=== PATIENT | male | born 1960 | race Caucasian/White ===

== ENCOUNTER 2017-01-24 15:45 | Inpatient (IN) ==
[2017-01-24] MEDS ORDERED: 0.9 % Sodium Chloride 500 ML IVC ONE (16:21)
--- NOTE | 2017-01-24 16:40 | Emergency Department Note ---
Disposition Clinical Impression: Weakness, Elevated troponin I level, EKG abnormalities, ESRD (end stage renal disease) on dialysis Closed right clavicular fracture Qualifiers: Encounter type: initial encounter Clavicle location: lateral end Fracture alignment: nondisplaced Qualified Code(s): S42.034A - Nondisplaced fracture of lateral end of right clavicle, initial encounter for closed fracture Disposition: Admitted As Inpatient Condition: Serious [facility]: [facility] Care Provider[facility] - Forms: ED Satisfaction Letter Time of Disposition: 18:13 Weakness HPI - General Chief complaint: ED Weakness Stated complaint: weakness Time Seen by Provider: 01/24/17 15:48 Source: patient, EMS Limitations: no limitations Nursing Notes Reviewed: Yes Vital Signs Reviewed: Yes - History of Present Illness HPI Narrative: 69-year-old male history of dialysis, dialyzes on Monday and Monday, typically at [facility], most of his care is received at the [facility], the patient presents today complaining of possibly 2 months of worsening and progressive weakness. His history of CVA and does take Coumadin at this time. He also has a history of AL status post stents, HTN, HLD, Vit D deficiency, Pt Subjective Complaint: generalized weakness/fatigue Onset (ago): month(s) Duration: intermittent Pain Severity: mild Pain Scale: 0 If pain, quality: tingling Improves with: none Worsens with: none Associated symptoms: Reports: confusion, easy bruising, other (frequent falls). Denies: chest pain, fever/chills, headaches, nausea/vomiting, myalgias - Related Data Allergies Allergy/AdvReac Type Severity Reaction Status Date / Time No Known Allergies Allergy Verified 01/24/17 15:51 All systems ED: reviewed and negative except as stated. Constitutional: Reports: as per HPI, weakness. Denies: fever Cardiovascular: Denies: chest pain, palpitations, dyspnea on exertion, edema, syncope Respiratory: Denies: cough, dyspnea Gastrointestinal: Denies: abdominal pain, nausea, vomiting Genitourinary: Denies: urgency, dysuria Musculoskeletal: Denies: back pain, neck pain Neurological: Reports: as per HPI, weakness, abnormal gait. Denies: numbness, paresthesias, confusion Past Medical History - Past Medical History Attestation: Yes The following information was validated with the patient. Source: old records reviewed, obtained from family Medical history: Reports: CVA, DVT, diabetes, dialysis, GERD, hyperlipidemia, hypertension, myocardial infarction, renal disease - Social History Smoking Status: Current every day smoker Alcohol use: Reports: none Drug use: Reports: none Physical Exam Constitutional: Cachectic male, mildly elevated blood pressure. HEENT: NCAT, sclera anicteric Neck: normal inspection, neck is supple, trachea midline Resp: normal chest inspection, CTA bilaterally, no resp distress CV: RRR, no m/g/r GI: normal inspection, Soft, NTND, BS present Back: normal inspection, no tenderness to palpation Neuro: A&O2 to self and place, right-sided 4-5 muscle strength upper extremity and lower extremity this is his baseline, unable to ambulate MSK: normal inspection, bilateral UE and LE with normal ROM Psych: normal mood, normal affect Skin: No rashes, skin warm, dry, intact - General Limitations: no limitations General appearance: alert Course Course Narrative: 56-year-old male with ESRD, kidney lab work CBC coagulation studies, CT scan chest x-ray in 500 mL of fluids the patient appears clinically dry, patient appears in poor condition, has multiple falls due to chronic debility, concern for probable admission for this patient. - Reevaluation(s) Reevaluation #1: The patient does have a right nondisplaced clavicle fracture, likely from fall, no associated pneumothorax, the patient to be admitted to medicine service given elevated troponin, some concerning anterior septal lead V2 V3 biphasic T waves that could represent a Wellens pattern in the right clinical context however the patient has no signs of ACS, said weakness he has no chest pain dyspnea diaphoresis, or anything concerning for acute AL, his troponin was mildly elevated in the setting of ESRD we do not have a baseline at his baseline EKG did demonstrate the same pattern over a week ago. Admitted to [facility] hospitalist service in stable condition Time: 18:12 Vital Signs Temperature 97.9 F 01/24/17 15:48 Pulse Rate 70 01/24/17 15:48 Respiratory Rate 18 01/24/17 15:48 Blood Pressure 185/85 01/24/17 15:48 O2 Sat by Pulse Oximetry 100 01/24/17 15:48 Temperature 97.9 F 01/24/17 15:48 Pulse Rate 73 01/24/17 17:54 Respiratory Rate 16 01/24/17 17:54 Blood Pressure 185/91 01/24/17 17:54 O2 Sat by Pulse Oximetry 96 01/24/17 17:54 Oxygen Delivery Oxygen Delivery Room Air Weakness - MDM Narrative Medical decision making narrative: 56-year-old male with ESRD, generalized weakness, right clavicle fracture, elevated troponin with EKG changes, patient is on Coumadin, plan to admit to medicine service for further evaluation, trending troponins, dialysis, CT was unremarkable for acute ICH, - Differential Diagnosis Differential Diagnosis: Likely: anemia, hypoglycemia - Medical Records Medical records reviewed: Yes I reviewed the patient's medical records. - Lab Data Lab results reviewed: Yes I reviewed the patient's lab results. Result diagrams: 01/24/17 17:15 01/24/17 17:15 Lab Results 01/24/17 01/24/17 01/24/17 Range/Units 16:58 17:15 17:15 WBC 8.7 (4.3-11.1) K/mcL RBC 3.67 L (4.19-5.50) M/mcL Hgb 11.5 L (12.9-16.9) g/dL Hct 34.0 L (37.5-50.1) % MCV 92.6 (83.0-100.0) fL MCH 31.3 (28.0-33.3) pg MCHC 33.8 (31.6-35.5) g/dL RDW 13.7 (11.5-14.5) % Plt Count 208 (140-400) K/mcL MPV 10.3 (9.4-12.4) fL Immature Gran % 0.5 (0-4) % Seg Neutrophils % 65.6 % Lymphocytes % 24.9 % Monocytes % 6.0 % Eosinophils % 2.2 % Basophils % 0.8 % Neutrophils # 5.7 (1.6-8.9) K/mcL Lymphocytes # 2.2 (0.6-4.6) K/mcL Monocytes # 0.5 (0.0-1.3) K/mcL Eosinophils # 0.2 (0.0-0.6) K/mcL Basophils # 0.1 (0.0-0.2) K/mcL Immature Plt Fraction 3.9 (1.1-6.1) % PT (9.4-12.1) Seconds INR Sodium 141 (136-145) mEq/L Potassium 3.4 L (3.5-4.5) mEq/L Chloride 99 (98-109) mEq/L Carbon Dioxide 33 H (19-29) mEq/L BUN 21 (8-26) mg/dL Creatinine 3.82 H (0.72-1.25) mg/dL Est GFR ( Amer) 20 L (> 60) Est GFR (Non-Af Amer) 16 L (> 60) BUN/Creatinine Ratio 5 L (6-26) Glucose 147 H (70-99) mg/dL Calculated Osmolality 298 (280-300) Lactic Acid (0.5-2.2) mmol/L Calcium 8.8 (8.6-10.8) mg/dL Phosphorus 2.3 (2.3-4.7) mg/dL Magnesium 1.8 (1.6-2.6) mg/dL Total Bilirubin 0.2 (0.2-1.2) mg/dL AST 17 (5-34) Units/L ALT 17 (0-55) Units/L Alkaline Phosphatase 182 H (38-126) Units/L Creatine Kinase 42 (30-200) Units/L Troponin I (0-0.03) ng/mL Serum Total Protein 7.5 (6.0-8.3) g/dL Albumin 3.8 (3.5-5.0) g/dL Globulin 3.7 H (2.4-3.5) g/dL Albumin/Globulin Ratio 1.0 L (1.1-2.2) Urine Color Yellow (Yellow) Urine Clarity Clear (Clear) Urine pH 8.0 (5.0-8.0) pH Units Ur Specific [place] 1.014 (1.010-1.025) Urine Protein >=300 H (Neg-Trace) mg/dL Urine Glucose (UA) 100 H (Normal) mg/dL Urine Ketones Negative (Negative) mg/dL Urine Blood Negative (Negative) Urine Nitrite Negative (Negative) Urine Bilirubin Negative (Negative) Urine Urobilinogen Normal (Normal) mg/dL Ur Leukocyte Esterase Negative (Negative) Urine Microscopic RBC 0-3 (0-3) per hpf Urine Microscopic WBC 0-3 (0-3) per hpf Ur Squamous Epith Cells Many H (None-Few) per lpf Urine Bacteria None Seen (None-Few) per hpf Hyaline Casts None Seen (None-Few) per lpf Ur Culture Indicated? NO (NO) 01/24/17 01/24/17 01/24/17 Range/Units 17:15 17:15 17:15 WBC (4.3-11.1) K/mcL RBC (4.19-5.50) M/mcL Hgb (12.9-16.9) g/dL Hct (37.5-50.1) % MCV (83.0-100.0) fL MCH (28.0-33.3) pg MCHC (31.6-35.5) g/dL RDW (11.5-14.5) % Plt Count (140-400) K/mcL MPV (9.4-12.4) fL Immature Gran % (0-4) % Seg Neutrophils % % Lymphocytes % % Monocytes % % Eosinophils % % Basophils % % Neutrophils # (1.6-8.9) K/mcL Lymphocytes # (0.6-4.6) K/mcL Monocytes # (0.0-1.3) K/mcL Eosinophils # (0.0-0.6) K/mcL Basophils # (0.0-0.2) K/mcL Immature Plt Fraction (1.1-6.1) % PT 20.5 H (9.4-12.1) Seconds INR 1.9 Sodium (136-145) mEq/L Potassium (3.5-4.5) mEq/L Chloride (98-109) mEq/L Carbon Dioxide (19-29) mEq/L BUN (8-26) mg/dL Creatinine (0.72-1.25) mg/dL Est GFR ( Amer) (> 60) Est GFR (Non-Af Amer) (> 60) BUN/Creatinine Ratio (6-26) Glucose (70-99) mg/dL Calculated Osmolality (280-300) Lactic Acid 1.3 (0.5-2.2) mmol/L Calcium (8.6-10.8) mg/dL Phosphorus (2.3-4.7) mg/dL Magnesium (1.6-2.6) mg/dL Total Bilirubin (0.2-1.2) mg/dL AST (5-34) Units/L ALT (0-55) Units/L Alkaline Phosphatase (38-126) Units/L Creatine Kinase (30-200) Units/L Troponin I 0.04 H* (0-0.03) ng/mL Serum Total Protein (6.0-8.3) g/dL Albumin (3.5-5.0) g/dL Globulin (2.4-3.5) g/dL Albumin/Globulin Ratio (1.1-2.2) Urine Color (Yellow) Urine Clarity (Clear) Urine pH (5.0-8.0) pH Units Ur Specific [place] (1.010-1.025) Urine Protein (Neg-Trace) mg/dL Urine Glucose (UA) (Normal) mg/dL Urine Ketones (Negative) mg/dL Urine Blood (Negative) Urine Nitrite (Negative) Urine Bilirubin (Negative) Urine Urobilinogen (Normal) mg/dL Ur Leukocyte Esterase (Negative) Urine Microscopic RBC (0-3) per hpf Urine Microscopic WBC (0-3) per hpf Ur Squamous Epith Cells (None-Few) per lpf Urine Bacteria (None-Few) per hpf Hyaline Casts (None-Few) per lpf Ur Culture Indicated? (NO) - Radiology Data Radiology results reviewed: Yes I reviewed the patient's radiology results. Chest X-Ray 01/24/17 16:08 IMPRESSION: No acute cardiopulmonary disease. Fracture of the distal right clavicle, possibly acute. Clinical correlation and follow-up right shoulder examination would be helpful. D/ / Nabor Mosher MD / Nabor Mosher MD Interpreting Provider: Nabor Mosher MD Head CT 01/24/17 16:13 IMPRESSION: No acute intracranial abnormality. D/ / Kristian Neves MD / Kristian Neves MD Interpreting Provider: Kristian Neves MD - EKG Data EKG attestation: Yes I reviewed and interpreted this EKG. EKG shows normal: sinus rhythm (69 bpm OK 167 curettes 97 QTc 428 biphasic T waves in leads V2 V3 seen on previous EKG in 01/12/2017, also has lateral T- wave inversions in V5 and V6.) Rate: normal Rhythm: NSR Interpretation: nonspecific ST-T wave changes - Core Measures AMI Core Measures Followed: No Measure Exclusions: not indicated (On Coumadin) Attestation Statement - Attestation Attestation: I examined this patient and my medical decision-making was reviewed with the Resident Physician. I agree with the documented findings, disposition and treatment plan as described except to the extent set forth below. Unknown baseline mental status, is answering questions appropriately but seems groggy and slow to answer. Appears clinically dry, oral mucosa and tongue are dry on my inspection. Mildly hypertensive with normal heart rate. Dr. Thompson workup and treatment seems appropriate. EKG shows anterior Q waves with lateral T-wave inversions and biphasic anterior T waves, unchanged from recent EKG from approximately 2 weeks ago. Patient will require admission for clinical observation and further testing.
[2017-01-24 17:07] LABS: Bilirubin,Urine Negative (Negative); Blood,Urine Negative (Negative); Clarity,Urine Clear (Clear); Color,Urine Yellow (Yellow); Glucose,Urine (UA) 100 mg/dL (Normal); Ketones,Urine Negative (Negative); Leukocyte Esterase,Urine Negative (Negative); Nitrite,Urine Negative (Negative); Protein,Urine >=300 mg/dL (Neg-Trace); Specific Gravity,Urine 1.014 (1.010-1.025); Urobilinogen,Urine Normal (Normal)
[2017-01-24 17:09] LABS: Bacteria,Urine None Seen per hpf (None-Few); Hyaline Casts,Urine None Seen per lpf (None-Few); RBC,Urine 0-3 per hpf (0-3); Squamous Epithelial Cell,Urine Many per lpf (None-Few); WBC,Urine 0-3 per hpf (0-3)
[2017-01-24 17:25] LABS: Basophils # 0.1 K/mcL (0.0-0.2); Basophils % 0.8 %; Eosinophils # 0.2 K/mcL (0.0-0.6); Eosinophils % 2.2 %; Hemoglobin 11.5 g/dL (12.9-16.9); Immature Granulocytes % 0.5 % (0-4); Immature Platelets 3.9 % (1.1-6.1); Lymphocytes # 2.2 K/mcL (0.6-4.6); Lymphocytes % 24.9 %; Mean Corpuscular HGB Conc 33.8 g/dL (31.6-35.5); Mean Corpuscular Hemoglobin 31.3 pg (28.0-33.3); Mean Corpuscular Volume 92.6 fL (83.0-100.0); Mean Platelet Volume 10.3 fL (9.4-12.4); Monocytes # 0.5 K/mcL (0.0-1.3); Neutrophils # 5.7 K/mcL (1.6-8.9); Platelet Count 208 K/mcL (140-400); Red Blood Count 3.67 M/mcL (4.19-5.50); Red Cell Distribution Width 13.7 % (11.5-14.5); Segmented Neutrophils % 65.6 %
[2017-01-24 17:29] LABS: INR 1.9; Prothrombin Time 20.5 Seconds (9.4-12.1)
[2017-01-24 17:40] LABS: Albumin 3.8 g/dL (3.5-5.0); Bilirubin,Total 0.2 mg/dL (0.2-1.2); Calcium 8.8 mg/dL (8.6-10.8); Globulin 3.7 g/dL (2.4-3.5); Magnesium 1.8 mg/dL (1.6-2.6); Phosphorous 2.3 mg/dL (2.3-4.7); Potassium 3.4 mEq/L (3.5-4.5); Total Protein 7.5 g/dL (6.0-8.3)
[2017-01-24] MEDS ORDERED: Acetaminophen 325 MG TABLET PO PRN (20:18)
[2017-01-24] MEDS ORDERED: Ondansetron ODT 4 MG TAB.RAPDIS SL PRN (20:18)
[2017-01-24] MEDS ORDERED: Naloxone 0.4 MG/ML INJ IVP PRN (20:18)
[2017-01-24] MEDS ORDERED: D5% in Water 1,000 ML IVC PRN (20:26)
[2017-01-24] MEDS ORDERED: Dextrose Gel 15 GM PO PRN ×2 (20:26)
[2017-01-24] MEDS ORDERED: *HR* Dextrose 50 % in Water (Syg) 50 ML SYRINGE IVP PRN (20:26)
[2017-01-24] MEDS ORDERED: Famotidine 20 MG TABLET PO SCH (21:00)
--- NOTE | 2017-01-24 21:34 | Internal Med History&Physical ---
<Lashon Gibbs M - Last Filed: 01/24/17 23:50> Date of Encounter: 01/24/17 Time of Encounter: 21:28 Assessment and Plan (1) Weakness Current visit: Yes Status: Acute Patient's brother brought patient to [place] urgent care for progressive weakness and falls since starting dialysis 5 weaks ago. Patient does have history of CVA with right sided residual. Head CT showed no acute intracranial abnormality. MR of head and brain ordered. Obtain old medical records of previous CVA to compare. SWK, PT, OT consulted. (2) Closed right clavicular fracture Current visit: Yes Status: Acute Patient reports a fall 1 week ago, does not complain of any pain. CXR incidentally found right non-displaced clavicle fracture. Sling ordered for right arm. Qualifiers: Encounter type: initial encounter Clavicle location: lateral end Fracture alignment: nondisplaced Qualified Code(s): S42.034A - Nondisplaced fracture of lateral end of right clavicle, initial encounter for closed fracture (3) Elevated troponin I level Current visit: Yes Status: Acute Troponin mildly elevated to 0.04 in the setting of ESRD. EKG without significant changes from previous. Continuous hospital monitor. Serial troponins. (4) ESRD (end stage renal disease) on dialysis Current visit: Yes Status: Acute Patient started HD 5 weeks ago and dialyzes MWF through a left sub-clavian HD catheter in [place]. BUN and creatinine consistent with ESRD at 21 and 3.82 respectively. Potassium acceptable at 3.4. Consult to Nephrology ordered, spoke with Dr. Guzman, who will see patient tomorrow. Check chemistry daily. (5) Anticoagulated on Coumadin Current visit: Yes Status: Acute Patient on coumadin for history of multiple DVTs. INR subtherapeutic at 1.9. Pharmacy to dose coumadin. Check PT/INR daily. (6) Type 2 diabetes mellitus Current visit: Yes Status: Acute diabetic diet check blood sugars ACHS continue 70/30 BID hypoglycemic protocol. Qualifiers: Diabetes mellitus complication status: with unspecified complications Diabetes mellitus alf insulin use: with alf use Qualified Code(s) : E11.8 - Type 2 diabetes mellitus with unspecified complications; Z79.4 - longterm (current) use of insulin (7) DVT prophylaxis Current visit: Yes Status: Acute Patient on coumadin for history of DVTs, additional pharmacologic prophylaxis not warranted. Internal Medicine - H&P: HPI Chief complaint: weakness Admitted From: Emergency Dept Plans for Post Hospital Care: Home History of present illness: Mr. Wilson is a 56 year old male with hypertension, hyperlipidemia, type 2 diabetes, history of multiple DVTs, seizure disorder, CVA with right-sided weakness, end-stage renal disease on hemodialysis for the last 5 weeks presents to the emergency department from the [place] urgent care for complaints of weakness and falls. Patient's brother reportedly brought him and has a she has been getting progressively weaker since initiating dialysis 5 weeks ago. Patient reporting historian, but does state that he feels weak and reports that he fell about a week ago. Patient complains of lightheadedness, poor appetite, denies any chest pain, palpitations, shortness of breath, nausea, vomiting, abdominal pain, diarrhea. Patient denies any fever, chills or sweats. Evaluation in the emergency department included a chest x-ray which showed a right nondisplaced clavicle fracture. Head CT showed no acute intracranial abnormality. Her blood cell count normal at 8.7. Troponin mildly elevated at 0.04, in the setting of end-stage renal disease. BUN and creatinine consistent with his diagnosis of end-stage renal disease at 21 and 3.82 respectively. Potassium at 3.4, acceptable. INR is subtherapeutic at 1.9 on exam, patient alert and oriented, in no acute distress. He does answer some questions inappropriately, and has difficulty with numbers and times, it is unclear if this is his baseline as patient's family not present. Patient's right arm is atrophied and he does not use it, consistent with his history of CVA. Right arm is significantly weaker than left. Cranial nerves intact. Heart has regular rate and rhythm, lungs are clear bilaterally to auscultation. He has bruising on his right posterior and lateral hip which patient reports is from his fall 1 week ago. Past Med Surg Social Fam HX - Past Medical History Medical history: CVA (with right sided residual. ), DVT, diabetes, dialysis, GERD, hyperlipidemia, hypertension, myocardial infarction, renal disease, seizures - Past Surgical History Surgical History: angioplasty/stent - Social History Smoking Status: Former smoker (42 pack year history) Smokeless Tobacco Status: No Alcohol use: none Drug use: none - Family History Mother Age: 87 Living Status: Still Living Hx Family Cardiac Disorders: Yes Hx Family Endocrine Disorder: Yes Father Living Status: Cause of : CVA Internal Medicine - H&P: Meds Ammonium Lactate 1 appl TP BID 01/24/17 [History] Atorvastatin [Lipitor] 40 mg PO HS 01/24/17 [History] Calcitriol [Rocaltrol] 0.25 mcg PO DAILY 01/24/17 [History] Carvedilol [Coreg] 25 mg PO BID 01/24/17 [History] Clopidogrel [Plavix] 75 mg PO DAILY 01/24/17 [History] Dextrose [Glucose] 16 gm PO AD PRN 01/24/17 [History] Docusate Sodium [Dok] 100 mg PO DAILY 01/24/17 [History] Ergocalciferol (VITAMIN D2) [Vitamin D2] 50,000 unit PO QWEEK 01/24/17 [History] Gabapentin [Neurontin] 400 mg PO DAILY 01/24/17 [History] Glucagon,Human Recombinant [Glucagon Emergency Kit] 1 mg IJ ONCE PRN 01/24/17 [ History] Insulin NPH Hum/Reg Insulin Hm [Novolin 70-30 100 Unit/ml Vial] 5 unit SQ QPM [History] Insulin NPH Hum/Reg Insulin Hm [Novolin 70-30 100 Unit/ml Vial] 15 unit SQ QAM 01/24/17 [History] LevETIRAcetam [Keppra] 500 mg PO BID 01/24/17 [History] Lisinopril [Zestril] 20 mg PO DAILY 01/24/17 [History] Nut.tx.impaired Renal Fxn,Soy [Nepro Carb Steady] 237 ml PO DAILY 01/24/17 [ History] Omeprazole [PriLOSEC] 20 mg PO DAILY 01/24/17 [History] Phenytoin ER [Dilantin ER] 200 mg PO BID 01/24/17 [History] Triamcinolone Acet 0.1% CRM [Kenalog] 1 appl TP BID 01/24/17 [History] Warfarin [Coumadin] 5 mg PO SUTUTHSA 01/24/17 [History] Warfarin [Coumadin] 7.5 mg PO MOWEFR 01/24/17 [History] cloNIDine HCl [Clonidine HCl] 0.3 mg PO TID 01/24/17 [History] Allergies No Known Allergies Allergy (Verified 01/24/17 15:51) All Systems PM: A 10-system review of systems was performed and is negative for pertinent findings except as documented above in the HPI. - Constitutional Constitutional: anorexia, weakness, no chills, no fever(s), no night sweats - EENT Eyes: no change in vision, no discharge, no pain, no photophobia Ears: no ear discharge, no ear pain, no tinnitus Nose, mouth and throat: no dysphagia, no nasal discharge, no neck pain, no sore throat - Cardiovascular Cardiovascular ROS IM: no chest pain, no diaphoresis, no dyspnea, no lightheadedness, no palpitations, no syncope - Respiratory Respiratory: no cough, no dyspnea, no wheezing, no excessive phlegm production - Gastrointestinal Gastrointestinal: no abdominal pain, no diarrhea, no hematemesis, no hematochezia, no melena, no nausea, no vomiting - Musculoskeletal Musculoskeletal ROS IM: no numbness, no tingling - Integumentary Integumentary IM: no rash, no unusual bruising - Neurological Neurological ROS: no confusion, no convulsions, no focal weakness, no numbness, no tingling, no tremor(s) - Hematologic/Lymphatic Hematologic/Lymphatic: no easy bruising - Constitutional Vitals: Temp Pulse Resp BP Pulse Ox 97.7 F 78 17 188/85 99 01/24/17 20:28 01/24/17 20:28 01/24/17 20:28 01/24/17 20:28 01/24/17 20:28 General appearance: Present: A&O X 3, pleasant, no acute distress - Head Head exam: Present: atraumatic, normocephalic - Eye Eye exam: Present: PERRL, conjuntiva pink, sclera anicteric Pupils: Present: PERRL - Neck Neck exam general surgery: Present: supple, trachea midline. Absent: lymphadenopathy - Respiratory Respiratory exam: Present: CTAB. Absent: accessory muscle use, rales, rhonchi, wheezes - Cardiovascular Cardiovascular exam: Present: RRR, +S1, +S2. Absent: diastolic murmur, gallop, rubs, systolic murmur - GI/Abdominal GI/Abdominal exam: Present: normal bowel sounds, soft, no peritoneal signs. Absent: distended, tenderness - Extremities Exam Extremities exam: Present: warm, radial pulses palpable and symetrical. Absent : calf tenderness, cyanotic, pedal edema - Neurological Exam Neurological exam: Present: CN II-XII intact, oriented X3. Absent: strengths equal and symetr throughout, facial droop, speech deficit - Expanded Neurological Exam Neuro motor strength exam: LUE: 5, RUE: 3, LLE: 5, RLE: 5 - Skin Skin exam: Present: dry, intact Internal Med - H&P Results - Labs CBC & Chem 7: 01/24/17 17:15 01/24/17 17:15 Labs: All Lab Results (24 Hours) 01/24/17 01/24/17 01/24/17 Range/Units 16:58 17:15 17:15 WBC 8.7 (4.3-11.1) K/mcL RBC 3.67 L (4.19-5.50) M/mcL Hgb 11.5 L (12.9-16.9) g/dL Hct 34.0 L (37.5-50.1) % MCV 92.6 (83.0-100.0) fL MCH 31.3 (28.0-33.3) pg MCHC 33.8 (31.6-35.5) g/dL RDW 13.7 (11.5-14.5) % Plt Count 208 (140-400) K/mcL MPV 10.3 (9.4-12.4) fL Immature Gran % 0.5 (0-4) % Seg Neutrophils % 65.6 % Lymphocytes % 24.9 % Monocytes % 6.0 % Eosinophils % 2.2 % Basophils % 0.8 % Neutrophils # 5.7 (1.6-8.9) K/mcL Lymphocytes # 2.2 (0.6-4.6) K/mcL Monocytes # 0.5 (0.0-1.3) K/mcL Eosinophils # 0.2 (0.0-0.6) K/mcL Basophils # 0.1 (0.0-0.2) K/mcL Immature Plt Fraction 3.9 (1.1-6.1) % PT (9.4-12.1) Seconds INR Sodium 141 (136-145) mEq/L Potassium 3.4 L (3.5-4.5) mEq/L Chloride 99 (98-109) mEq/L Carbon Dioxide 33 H (19-29) mEq/L BUN 21 (8-26) mg/dL Creatinine 3.82 H (0.72-1.25) mg/dL Est GFR ( Amer) 20 L (> 60) Est GFR (Non-Af Amer) 16 L (> 60) BUN/Creatinine Ratio 5 L (6-26) Glucose 147 H (70-99) mg/dL Calculated Osmolality 298 (280-300) Lactic Acid (0.5-2.2) mmol/L Calcium 8.8 (8.6-10.8) mg/dL Phosphorus 2.3 (2.3-4.7) mg/dL Magnesium 1.8 (1.6-2.6) mg/dL Total Bilirubin 0.2 (0.2-1.2) mg/dL AST 17 (5-34) Units/L ALT 17 (0-55) Units/L Alkaline Phosphatase 182 H (38-126) Units/L Creatine Kinase 42 (30-200) Units/L Troponin I (0-0.03) ng/mL Serum Total Protein 7.5 (6.0-8.3) g/dL Albumin 3.8 (3.5-5.0) g/dL Globulin 3.7 H (2.4-3.5) g/dL Albumin/Globulin Ratio 1.0 L (1.1-2.2) Urine Color Yellow (Yellow) Urine Clarity Clear (Clear) Urine pH 8.0 (5.0-8.0) pH Units Ur Specific [place] 1.014 (1.010-1.025) Urine Protein >=300 H (Neg-Trace) mg/dL Urine Glucose (UA) 100 H (Normal) mg/dL Urine Ketones Negative (Negative) mg/dL Urine Blood Negative (Negative) Urine Nitrite Negative (Negative) Urine Bilirubin Negative (Negative) Urine Urobilinogen Normal (Normal) mg/dL Ur Leukocyte Esterase Negative (Negative) Urine Microscopic RBC 0-3 (0-3) per hpf Urine Microscopic WBC 0-3 (0-3) per hpf Ur Squamous Epith Cells Many H (None-Few) per lpf Urine Bacteria None Seen (None-Few) per hpf Hyaline Casts None Seen (None-Few) per lpf Ur Culture Indicated? NO (NO) 01/24/17 01/24/17 01/24/17 Range/Units 17:15 17:15 17:15 WBC (4.3-11.1) K/mcL RBC (4.19-5.50) M/mcL Hgb (12.9-16.9) g/dL Hct (37.5-50.1) % MCV (83.0-100.0) fL MCH (28.0-33.3) pg MCHC (31.6-35.5) g/dL RDW (11.5-14.5) % Plt Count (140-400) K/mcL MPV (9.4-12.4) fL Immature Gran % (0-4) % Seg Neutrophils % % Lymphocytes % % Monocytes % % Eosinophils % % Basophils % % Neutrophils # (1.6-8.9) K/mcL Lymphocytes # (0.6-4.6) K/mcL Monocytes # (0.0-1.3) K/mcL Eosinophils # (0.0-0.6) K/mcL Basophils # (0.0-0.2) K/mcL Immature Plt Fraction (1.1-6.1) % PT 20.5 H (9.4-12.1) Seconds INR 1.9 Sodium (136-145) mEq/L Potassium (3.5-4.5) mEq/L Chloride (98-109) mEq/L Carbon Dioxide (19-29) mEq/L BUN (8-26) mg/dL Creatinine (0.72-1.25) mg/dL Est GFR ( Amer) (> 60) Est GFR (Non-Af Amer) (> 60) BUN/Creatinine Ratio (6-26) Glucose (70-99) mg/dL Calculated Osmolality (280-300) Lactic Acid 1.3 (0.5-2.2) mmol/L Calcium (8.6-10.8) mg/dL Phosphorus (2.3-4.7) mg/dL Magnesium (1.6-2.6) mg/dL Total Bilirubin (0.2-1.2) mg/dL AST (5-34) Units/L ALT (0-55) Units/L Alkaline Phosphatase (38-126) Units/L Creatine Kinase (30-200) Units/L Troponin I 0.04 H* (0-0.03) ng/mL Serum Total Protein (6.0-8.3) g/dL Albumin (3.5-5.0) g/dL Globulin (2.4-3.5) g/dL Albumin/Globulin Ratio (1.1-2.2) Urine Color (Yellow) Urine Clarity (Clear) Urine pH (5.0-8.0) pH Units Ur Specific [place] (1.010-1.025) Urine Protein (Neg-Trace) mg/dL Urine Glucose (UA) (Normal) mg/dL Urine Ketones (Negative) mg/dL Urine Blood (Negative) Urine Nitrite (Negative) Urine Bilirubin (Negative) Urine Urobilinogen (Normal) mg/dL Ur Leukocyte Esterase (Negative) Urine Microscopic RBC (0-3) per hpf Urine Microscopic WBC (0-3) per hpf Ur Squamous Epith Cells (None-Few) per lpf Urine Bacteria (None-Few) per hpf Hyaline Casts (None-Few) per lpf Ur Culture Indicated? (NO) - Diagnostic Studies Chest x-ray Additional comments: Chest X-Ray 01/24/17 16:08 IMPRESSION: No acute cardiopulmonary disease. Fracture of the distal right clavicle, possibly acute. Clinical correlation and follow-up right shoulder examination would be helpful. D/ / Nabor Mosher MD / Nabor Mosher MD Interpreting Provider: Nabor Mosher MD CT scan - head Additional comments: Head CT 01/24/17 16:13 IMPRESSION: No acute intracranial abnormality. D/ / Kristian Neves MD / Kristian Neves MD Interpreting Provider: Kristian Neves MD <Ghulam Cardenas - Last Filed: 01/25/17 00:08> Date of Encounter: 01/24/17 - Constitutional Constitutional: anorexia, weakness - Cardiovascular Cardiovascular ROS IM: no chest pain, no dyspnea - Respiratory Respiratory: no dyspnea, no hemoptysis, no chest congestion - Gastrointestinal Gastrointestinal: no abdominal pain, no dyspepsia, no nausea - Genitourinary Genitourinary ROS male: no flank pain - Musculoskeletal Musculoskeletal ROS IM: no arthralgias, no back pain - Integumentary Integumentary IM: no jaundice - Psychiatric Psychiatric: no anxiety, no depression - Endocrine Endocrine IM: no cold intolerance, no heat intolerance - Allergic/Immunologic Allergic/Immunologic: no wheezing, no GI upset with certain foods - Constitutional Vitals: Temp Pulse Resp BP Pulse Ox 97.7 F 78 17 188/85 99 01/24/17 20:28 01/24/17 20:28 01/24/17 20:28 01/24/17 20:28 01/24/17 20:28 General appearance: Present: cachectic, cooperative, A&O X 3, pleasant, no acute distress - Head Head exam: Present: atraumatic - Eye Eye exam: Absent: scleral icterus - Neck Neck exam general surgery: Present: full ROM, supple - Respiratory Respiratory exam: Present: CTAB. Absent: rales, wheezes - Cardiovascular Cardiovascular exam: Present: RRR, +S1, +S2 - GI/Abdominal GI/Abdominal exam: Present: soft. Absent: tenderness - Extremities Exam Extremities exam: Present: warm Additional comments: + muscle atrophy - Back Exam Back exam: Absent: CVA tenderness (L), CVA tenderness (R) - Psychiatric Psychiatric exam: Present: normal affect, normal mood. Absent: anxious, depressed - Skin Skin exam: Present: dry, warm Internal Med - H&P Results - Labs CBC & Chem 7: 01/24/17 17:15 01/24/17 17:15 - EKG Data -: EKG Interpreted by Myself - EKG Data Prior EKG available for review: yes When compared to previous EKG: there is no significant change - Diagnostic Studies Chest x-ray Status: image reviewed by me (clavicle fracture noted) - Attending Attestation I discussed the patient [place], PMH, ROS, lab data, and exam findings with Lashon Gibbs CNP. I then saw and examined patient independently as well. Patient reports feeling weak, falling, and losing appetite since he started hemodialysis. 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 He has history of old stroke, but he denies any new focal neurologic complaints. I agree with proceeding with MRI of brain nonetheless. Other than my comments and noted exam findings, I agree with Lashon's assessment and plan.
[2017-01-24] MEDS: levETIRAcetam 250 MG TABLET PO SCH (21:43)
[2017-01-24] MEDS: cloNIDine HCl 0.1 MG TABLET PO SCH (21:43)
[2017-01-24] MEDS: Ammonium Lactate 30 APPL/225 GM BOTTLE TP SCH (21:46)
[2017-01-25 04:36] LABS: INR 1.9; Prothrombin Time 21.4 Seconds (9.4-12.1)
[2017-01-25 04:46] LABS: Basophils # 0.1 K/mcL (0.0-0.2); Calcium 8.3 mg/dL (8.6-10.8); Eosinophils # 0.2 K/mcL (0.0-0.6); Eosinophils % 3.7 %; Hematocrit 29.7 % (37.5-50.1); Immature Granulocytes % 0.3 % (0-4); Lymphocytes # 1.9 K/mcL (0.6-4.6); Mean Corpuscular HGB Conc 33.7 g/dL (31.6-35.5); Mean Platelet Volume 10.4 fL (9.4-12.4); Monocytes # 0.5 K/mcL (0.0-1.3); Neutrophils # 3.2 K/mcL (1.6-8.9); Platelet Count 153 K/mcL (140-400); Potassium 3.1 mEq/L (3.5-4.5); Red Blood Count 3.23 M/mcL (4.19-5.50); Red Cell Distribution Width 13.6 % (11.5-14.5)
[2017-01-25] MEDS: levETIRAcetam 250 MG TABLET PO SCH ×2 (08:22→22:18)
--- NOTE | 2017-01-25 08:35 | Nephrology Consult Note ---
Date of Encounter: 01/25/17 Time of Encounter: 08:33 Assessment and Plan (1) ESRD (end stage renal disease) on dialysis Current Visit: Yes Status: Acute The patient will undergo dialysis today. Potassium is 3.17 on a 4K bath. I do not believe he needs to dialyze for 4 hours given his body size. We will check a phosphorus and PTH as well as iron studies. (2) Type 2 diabetes mellitus with diabetic chronic kidney disease Current Visit: Yes Status: Acute Qualifiers: Diabetes mellitus shelter insulin use: unspecified shelter insulin use status Chronic kidney disease stage: on chronic dialysis Qualified Code(s): E11.22 - Type 2 diabetes mellitus with diabetic chronic kidney disease; N18.6 - End stage renal disease; Z99.2 - Dependence on renal dialysis (3) Weakness Current Visit: Yes Status: Acute History of Present Illness - History of Present Illness This is a 56-year-old male that was admitted for progressive weakness and falling. Apparently fell about a week ago and sustained a right clavicular fracture. Patient reports a history of end-stage renal disease. He has been on dialysis for 2 months. He receives dialysis with [facility] in [facility]. He says he dialyzes every Monday for 4 hours. He reports sometimes after dialysis he feels weak. He continues to have a decent urine output reportedly. He says his renal failure was caused by a heart attack but I suspect that he has diabetic nephropathy. His hemoglobin is relatively good at 10.0. Vital signs are stable. He denies any chest pain shortness of breath peripheral edema nausea vomiting or anorexia. Past Med Surg Social Fam HX - Past Medical History Medical history: CVA (with right sided residual. ), DVT, diabetes, dialysis, GERD, hyperlipidemia, hypertension, myocardial infarction, renal disease, seizures - Past Surgical History Surgical History: angioplasty/stent - Social History Smoking Status: Former smoker (42 pack year history) Smokeless Tobacco Status: No Alcohol use: none Drug use: none - Family History Mother Age: 87 Living Status: Still Living Hx Family Cardiac Disorders: Yes Hx Family Endocrine Disorder: Yes Father Living Status: Cause of : CVA Medications and Allergies Ammonium Lactate 1 appl TP BID 01/24/17 [History] Atorvastatin [Lipitor] 40 mg PO HS 01/24/17 [History] Calcitriol [Rocaltrol] 0.25 mcg PO DAILY 01/24/17 [History] Carvedilol [Coreg] 25 mg PO BID 01/24/17 [History] Clopidogrel [Plavix] 75 mg PO DAILY 01/24/17 [History] Dextrose [Glucose] 16 gm PO AD PRN 01/24/17 [History] Docusate Sodium [Dok] 100 mg PO DAILY 01/24/17 [History] Ergocalciferol (VITAMIN D2) [Vitamin D2] 50,000 unit PO QWEEK 01/24/17 [History] Gabapentin [Neurontin] 400 mg PO DAILY 01/24/17 [History] Glucagon,Human Recombinant [Glucagon Emergency Kit] 1 mg IJ ONCE PRN 01/24/17 [ History] Insulin NPH Hum/Reg Insulin Hm [Novolin 70-30 100 Unit/ml Vial] 5 unit SQ QPM [History] Insulin NPH Hum/Reg Insulin Hm [Novolin 70-30 100 Unit/ml Vial] 15 unit SQ QAM 01/24/17 [History] LevETIRAcetam [Keppra] 500 mg PO BID 01/24/17 [History] Lisinopril [Zestril] 20 mg PO DAILY 01/24/17 [History] Nut.tx.impaired Renal Fxn,Soy [Nepro Carb Steady] 237 ml PO DAILY 01/24/17 [ History] Omeprazole [PriLOSEC] 20 mg PO DAILY 01/24/17 [History] Phenytoin ER [Dilantin ER] 200 mg PO BID 01/24/17 [History] Triamcinolone Acet 0.1% CRM [Kenalog] 1 appl TP BID 01/24/17 [History] Warfarin [Coumadin] 5 mg PO SUTUTHSA 01/24/17 [History] Warfarin [Coumadin] 7.5 mg PO MOWEFR 01/24/17 [History] cloNIDine HCl [Clonidine HCl] 0.3 mg PO TID 01/24/17 [History] Allergies No Known Allergies Allergy (Verified 01/24/17 15:51) Review of Systems Constitutional: as per HPI, weakness Eyes: bilateral: blurred vision (patient denies), diplopia (patient denies) Nose, mouth and throat: no dizziness, no headache(s) Cardiovascular: no chest pain, no palpitations Respiratory: no cough, no dyspnea Gastrointestinal: no abdominal pain, no change in bowel habits Musculoskeletal: no muscle weakness, no numbness Integumentary: no hirsutism, no striae Neurological: frequent falls, weakness Psychiatric: no depression, no difficulty concentrating Endocrine: as per HPI Hematologic/Lymphatic: no easy bruising, no lymphadenopathy Exam - Vital Signs Vital signs: Initial Vital Signs Temp Pulse Resp BP Pulse Ox 97.9 F 70 18 185/85 100 01/24/17 15:48 01/24/17 15:48 01/24/17 15:48 01/24/17 15:48 01/24/17 15:48 Vital Signs - Last 8 Hours Temp Pulse Resp BP Pulse Ox 01/25/17 07:19 98.3 F 79 16 143/75 100 01/25/17 04:35 97.9 F 68 16 170/89 94 Intake and Output 01/24/17 01/25/17 01/25/17 23:59 07:59 15:59 Other: Weight 70.307 kg - General Appearance Exam: The patient is alert and oriented. He is in no acute distress. Neck is supple. Lungs diminished breath sounds otherwise clear. Heart regular rate and rhythm with a 2/6 ejection murmur. Abdomen shows normal bowel sounds of breast masses, megaly or tenderness. Extremities show no peripheral edema. Assessment evidence of previous venous stasis changes. There is a tunnel dialysis catheter in the left chest. Results - Lab Results 01/25/17 04:12 01/25/17 04:12 Most recent lab results Calcium 8.3 mg/dL (8.6-10.8) L 01/25/17 04:12 Phosphorus 2.3 mg/dL (2.3-4.7) 01/24/17 17:15 Magnesium 1.8 mg/dL (1.6-2.6) 01/24/17 17:15 Consult Discharge Plan - Plan [facility] Care Provider[facility] -
[2017-01-25] MEDS ORDERED: 0.9 % Sodium Chloride 250 ML IVC PRN (08:38)
[2017-01-25] MEDS ORDERED: Gabapentin 400 MG CAPSULE PO SCH (09:00)
[2017-01-25] MEDS ORDERED: 0.9 % Sodium Chloride 2,000 ML ONE (10:48)
[2017-01-25 11:22] LABS: Phosphorous 2.4 mg/dL (2.3-4.7)
[2017-01-25] MEDS: Insulin NPH/REG 70/30 100 UNIT/ML (x5UNIT) SQ SCH ×2 (11:28→18:12)
--- NOTE | 2017-01-25 11:34 | Electrocardiograph Report ---
[place] [id number] Test Date: 2017-01-24 Pat Name: Marcos Wilson Department: 104 Room: 2A25 Gender: M [employer] Black [employer]: MSC : 1960 Requested By: Howard Thompson Order Number: [id number] Reading MD: Mandy Santamaria Measurements Intervals [place] Rate: 69 P: 52 [place]: 167 QRS: 5 QRSD: 97 T: 133 QT: 410 QTc: 428 Interpretive Statements SINUS RHYTHM PROBABLE INFERIOR MYOCARDIAL INFARCTION, PROBABLY OLD ANTEROLATERAL MYOCARDIAL INFARCTION, AGE INDETERMINATE Electronically Signed On 01-25-2017 11:33:00 EDT by Mandy Santamaria
[2017-01-25] MEDS: cloNIDine HCl 0.1 MG TABLET PO SCH ×3 (13:26→22:19)
[2017-01-25] MEDS: Lisinopril 20 MG TABLET PO SCH (13:27)
[2017-01-25] MEDS: Gabapentin 300 MG CAPSULE PO SCH (13:28)
[2017-01-25] MEDS: Ammonium Lactate 30 APPL/225 GM BOTTLE TP SCH ×3 (13:31→22:22)
[2017-01-25] MEDS: Insulin LISPRO 300 UNITS/3 ML VIAL SQ SCH ×3 (13:35→22:19)
--- NOTE | 2017-01-25 15:27 | Internal Med Progress Note ---
<Howard Schneider - Last Filed: 01/25/17 15:23> Date of Encounter: 01/25/17 Time of Encounter: 11:00 - Assessment and plan (1) Weakness Current Visit: Yes Status: Acute Assessment and plan: CT head in ED revealed no actue pathology. MRI ordered for today, results pending - PT/OT consulted. PT recommended home self care upon discharge. - Orthostatics positive, will insure adequate hydration, fluid balance with dialysis. - Will check TSH, phenytoin level. (2) Elevated troponin I level Current Visit: Yes Status: Acute Assessment and plan: In ED, Troponin 0.04. Has been adynamic, most recently 0.03 - Likely a result of decreased renal function vs demand ischemia - EKG revealed no ST changes. (3) ESRD (end stage renal disease) on dialysis Current Visit: Yes Status: Acute Assessment and plan: - BUN/ Cr on admission was 21/3.82. Known CKD stage 4 on HD -This AM was 23/3.90 - HD catheter oin L subclavian. Dialysis is MWF - Nephrology following. HD performed this Afternoon. - K this AM was 3.1. Nephrology ordered replacement during HD (4) Closed right clavicular fracture Current Visit: Yes Status: Acute Assessment and plan: - Incidental finding on CXR in ED - Likely occurred 1 week ago after reported fall - Patient in right arm sling, reporting no pain. Qualifiers: Encounter type: initial encounter Clavicle location: lateral end Fracture alignment: nondisplaced Qualified Code(s): S42.034A - Nondisplaced fracture of lateral end of right clavicle, initial encounter for closed fracture (5) DVT prophylaxis Current Visit: Yes Status: Acute Assessment and plan: - Patient on Coumadin for CVA. Continue home dose - INR in ED was 1.9, will adjust dose accordingly. (6) Type 2 diabetes mellitus Current Visit: Yes Status: Acute Assessment and plan: - Sliding insulin scale in place. - Continue checks. 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 His only complaint at this time was "dizzy". he has been experiencing these symptoms for multiple weeks. He states they are worse when he rises from a chair or bed. They are constant. He states that he is here for dialysis. He denies any symptoms of CP, SOB, n/v, diarrhea, fevers, chills. He states he has not had any cardiac workup in the past. He is not complaining of weakness this morning. - Constitutional Vitals: Temp Pulse Resp BP Pulse Ox 98.3 F 79 20 163/86 100 01/25/17 14:00 01/25/17 07:19 01/25/17 14:00 01/25/17 14:00 01/25/17 07:19 General appearance: Present: cachectic, cooperative, A&O X 3, pleasant, no acute distress Exam: Gen.: Vitals noted. No acute distress. AAOx3 HEENT: PERRL/EOMI, oropharynx clear, Normocephalic, atraumatic Neck: Supple. No adenopathy. Cardiac: RRR, no murmur, +S1/S2 Pulmonary: CTA bilaterally, no wheezes, rales or rhonchi, equal chest expansion Abdomen: soft, nontender, BS noted, no guarding Back: Nontender throughout. MSK: Unwilling to move right arm, currenltly in sling 2/2 clavicular fx, ROM intact, no joint swelling noted Extremities: no BLE edema, nontender calf, no cyanosis or clubbing Neuro: A&Ox3, moves all extremities, no focal deficits. Negative head tilt test. Psych: Appropriate mood and behavior Internal Medicine: Result - Labs CBC & Chem 7: 01/25/17 04:12 01/25/17 04:12 Labs: Short CBC 01/25/17 Range/Units 04:12 WBC 5.9 (4.3-11.1) K/mcL Hgb 10.0 L D (12.9-16.9) g/dL Hct 29.7 L (37.5-50.1) % Plt Count 153 (140-400) K/mcL Neutrophils # 3.2 (1.6-8.9) K/mcL BMP 01/25/17 04:12 Sodium 141 Potassium 3.1 L Chloride 102 Carbon Dioxide 30 H BUN 23 Creatinine 3.90 H Glucose 139 H Calcium 8.3 L Cardiac Enzymes 01/25/17 01/25/17 Range/Units 00:40 04:12 Troponin I 0.04 H* 0.03 (0-0.03) ng/mL - ABG Interpretation ABG results: PT/INR, D-dimer PT 21.4 Seconds (9.4-12.1) H 01/25/17 04:12 Consult Discharge Plan - Plan [facility]errals: [facility] [Primary Care Provider[facility] - <Reji De Souza - Last Filed: 01/25/17 17:36> Date of Encounter: 01/25/17 - Constitutional Vitals: Temp Pulse Resp BP Pulse Ox 98.0 F 79 18 102/65 98 01/25/17 15:58 01/25/17 15:58 01/25/17 15:58 01/25/17 15:58 01/25/17 15:58 Internal Medicine: Result - Labs CBC & Chem 7: 01/25/17 04:12 01/25/17 04:12 Labs: Short CBC 01/25/17 Range/Units 04:12 WBC 5.9 (4.3-11.1) K/mcL Hgb 10.0 L D (12.9-16.9) g/dL Hct 29.7 L (37.5-50.1) % Plt Count 153 (140-400) K/mcL Neutrophils # 3.2 (1.6-8.9) K/mcL [facility] 01/25/17 04:12 Sodium 141 Potassium 3.1 L Chloride 102 Carbon Dioxide 30 H BUN 23 Creatinine 3.90 H Glucose 139 H Calcium 8.3 L Cardiac Enzymes 01/25/17 01/25/17 Range/Units 00:40 04:12 Troponin I 0.04 H* 0.03 (0-0.03) ng/mL - ABG Interpretation ABG results: PT/INR, D-dimer PT 21.4 Seconds (9.4-12.1) H 01/25/17 04:12 - Attending Attestation I examined this patient and my medical decision-making was reviewed with the Resident Physician on 01/25/17. I agree with the documented findings, disposition and treatment plan as described except to the extent set forth below. Mr. Wilson was seen and evaluated at bedside. 56 Y/O M with ESRD, recently started on HD, admitted following weakness and recurrent falls. Work up so far unremarkable, TSH is WNL, phenytoin level is pending, and Brain MRI is pending. He appears confused and has a focal motor deficit on his right from is prior CVA. He is otherwise calm. Labs and Imaging reviewed. Continue current care, follow Brain MRI and Phenytoin level. Patient is not a safe discharge home due to recurrent falls, he has a clavicular fracture possibly from his fall one week ago and lives with his 87 Y/O mother. . BP control. Follow PT eval Rest of details as in residents documentation
[2017-01-25] MEDS: *HR* Warfarin 7.5 MG TABLET PO SCH (17:50)
[2017-01-25] MEDS ORDERED: Warfarin perPT PO PRN (18:00)
[2017-01-26 04:43] LABS: INR 1.6; Prothrombin Time 17.2 Seconds (9.4-12.1)
[2017-01-26 06:07] LABS: Basophils # 0.1 K/mcL (0.0-0.2); Basophils % 0.8 %; Eosinophils # 0.3 K/mcL (0.0-0.6); Eosinophils % 4.3 %; Hematocrit 29.9 % (37.5-50.1); Hemoglobin 10.1 g/dL (12.9-16.9); Immature Granulocytes % 0.2 % (0-4); Lymphocytes # 2.1 K/mcL (0.6-4.6); Lymphocytes % 35.5 %; Mean Corpuscular HGB Conc 33.8 g/dL (31.6-35.5); Mean Corpuscular Hemoglobin 31.6 pg (28.0-33.3); Mean Corpuscular Volume 93.4 fL (83.0-100.0); Mean Platelet Volume 11.1 fL (9.4-12.4); Monocytes # 0.5 K/mcL (0.0-1.3); Monocytes % 8.3 %; Neutrophils # 3.1 K/mcL (1.6-8.9); Platelet Count 155 K/mcL (140-400); Segmented Neutrophils % 50.9 %
[2017-01-26 06:28] LABS: Calcium 8.3 mg/dL (8.6-10.8); Potassium 3.3 mEq/L (3.5-4.5)
[2017-01-26] MEDS: Insulin LISPRO 300 UNITS/3 ML VIAL SQ SCH ×4 (08:07→22:46)
[2017-01-26] MEDS: Lisinopril 20 MG TABLET PO SCH (08:22)
[2017-01-26] MEDS: cloNIDine HCl 0.1 MG TABLET PO SCH ×3 (08:22→21:26)
[2017-01-26] MEDS: levETIRAcetam 250 MG TABLET PO SCH ×2 (08:22→21:27)
[2017-01-26] MEDS: Ammonium Lactate 30 APPL/225 GM BOTTLE TP SCH ×2 (09:40→21:34)
[2017-01-26] MEDS: Insulin NPH/REG 70/30 100 UNIT/ML (x5UNIT) SQ SCH ×2 (09:40→17:57)
--- NOTE | 2017-01-26 10:08 | Nephrology Progress Note ---
Date of Encounter: 01/26/17 Time of Encounter: 10:00 - Assessment and Plan (1) ESRD (end stage renal disease) on dialysis Current Visit: Yes Status: Acute ESRD, no dialysis today. HD tomorrow, keeping MWF schedule. Subjective Interval history: Watching tv, states shoulder pain under control, feeling somewhat stronger, no new complaints. Objective - Vital Signs Vital signs: Vital Signs Temp Pulse Resp BP Pulse Ox 01/26/17 06:50 98.2 F 78 13 155/78 96 Intake and Output 01/25/17 01/26/17 01/26/17 23:59 07:59 15:59 Output Total 200 / 200 Balance -200 / -200 Output: Urine 200 / 200 Other: Blood Glucose* 126 - General Appearance General appearance: Present: well-developed, well-nourished, appears started age EENT: Present: mucous membranes moist Neck: Present: no JVD Respiratory: Present: clear Cardiology: Present: regular rate, regular rhythm Additional Comments: trace pitting LE Additional Comments: left CVC access Gastrointestinal: Present: normoactive bowel sounds, no tenderness Integumentary: Present: warm and dry Neurologic: Present: alert and oriented x3 Psychiatric: Present: mood/affect appropriate, cooperative - Lab 01/26/17 03:48 01/26/17 03:48 Most recent lab results Calcium 8.3 mg/dL (8.6-10.8) L 01/26/17 03:48 Phosphorus 2.4 mg/dL (2.3-4.7) 01/25/17 09:06 Magnesium 1.8 mg/dL (1.6-2.6) 01/24/17 17:15 Consult Discharge Plan - Plan [facility]errals: [facility] [Primary Care Provider] -
[2017-01-26] MEDS: Gabapentin 300 MG CAPSULE PO SCH (15:31)
--- NOTE | 2017-01-26 16:43 | Internal Med Progress Note ---
<Howard Schneider - Last Filed: 01/26/17 16:40> Date of Encounter: 01/26/17 Time of Encounter: 10:30 - Assessment and plan (1) Weakness Current Visit: Yes Status: Acute Assessment and plan: CT head in ED revealed no actue pathology. MRI showed no acute pathology, sequela of encephalomalacia and gliosis in the left mid cerebral artery with wallerian degeneration. Chronic small vessel changes - PT/OT consulted. PT recommended home self care upon discharge. - Orthostatics positive, will insure adequate hydration, fluid balance with dialysis. - TSH within normal levels, phenytoin levels pending. - Blood cultures negative - We will likely need home health upon discharge at the [place] (2) ESRD (end stage renal disease) on dialysis Current Visit: Yes Status: Acute Assessment and plan: - BUN/ Cr on admission was 14/3.55, (21/3.82). Known CKD stage 4 on HD - HD catheter oin L subclavian. Dialysis is MWF - Nephrology following. HD tomorrow - K this AM was 3.3, improved from 3.1 after hemodialysis and potassium replacement. (3) Elevated troponin I level Current Visit: Yes Status: Acute Assessment and plan: In ED, Troponin 0.04. Has been adynamic, most recently 0.03 - Likely a result of decreased renal function vs demand ischemia - EKG revealed no ST changes. (4) Closed right clavicular fracture Current Visit: Yes Status: Acute Assessment and plan: - Incidental finding on CXR in ED - Likely occurred 1 week ago after reported fall - Patient in right arm sling, reporting no pain. Qualifiers: Encounter type: initial encounter Clavicle location: lateral end Fracture alignment: nondisplaced Qualified Code(s): S42.034A - Nondisplaced fracture of lateral end of right clavicle, initial encounter for closed fracture (5) DVT prophylaxis Current Visit: Yes Status: Acute Assessment and plan: - Patient on Coumadin for CVA. Continue home dose - INR in ED was 1.9, will adjust dose accordingly. - INR remained subtherapeutic, pharmacy adjusting dose (6) Type 2 diabetes mellitus Current Visit: Yes Status: Acute Assessment and plan: - Sliding insulin scale in place. - Continue checks. Qualifiers: Diabetes mellitus complication status: with kidney complications Diabetes mellitus complication detail: with chronic kidney disease Diabetes mellitus residential insulin use: with residential use Chronic kidney disease stage: stage 4 (severe) Qualified Code(s): E11.22 - Type 2 diabetes mellitus with diabetic chronic kidney disease; N18.4 - Chronic kidney disease, stage 4 (severe); Z79.4 - halfway (current) use of insulin - Time Spent With Patient 25 - 35 minutes - Subjective Interval history: Patient was seen and exmained at bedside this AM. He does not currently have any complaints. He states that he just returned from an MRI, and believes it to be for his abdomen. He denies any symptoms of shortness of breath, chest pain, fevers, chills, abdominal pain. He states he tolerated his his dialysis session yesterday well without any complications. He states his weakness is no longer a problem. - Constitutional Vitals: Temp Pulse Resp BP Pulse Ox 98.2 F 70 16 156/83 94 01/26/17 16:16 01/26/17 16:16 01/26/17 16:16 01/26/17 16:16 01/26/17 16:16 General appearance: Present: cachectic, cooperative, A&O X 3, pleasant, no acute distress Exam: Gen.: Vitals noted. No acute distress. AAOx3 HEENT: PERRL/EOMI, oropharynx clear, Normocephalic, atraumatic Neck: Supple. No adenopathy. Cardiac: RRR, no murmur, +S1/S2 Pulmonary: CTA bilaterally, no wheezes, rales or rhonchi, equal chest expansion Abdomen: soft, nontender, BS noted, no guarding Back: Nontender throughout. MSK: Residual right sided weakness after CVA. ROM intact, no joint swelling noted Extremities: no BLE edema, nontender calf, no cyanosis or clubbing Neuro: A&Ox3, moves all extremities, no focal deficits Psych: Appropriate mood and behavior Internal Medicine: Result - Labs CBC & Chem 7: 01/26/17 03:48 01/26/17 03:48 - ABG Interpretation ABG results: PT/INR, D-dimer PT 17.2 Seconds (9.4-12.1) H 01/26/17 03:48 - Impressions Impressions Brain MRI 01/26/17 08:24 IMPRESSION: There is a sequela of encephalomalacia and gliosis in the left middle cerebral artery territory with wallerian degeneration. There are chronic small vessel ischemic changes in the periventricular white matter and central dolores. There are no areas of restricted diffusion to suggest an acute ischemic event. D/ : / 01/26/2017 09:47:25 Leandra Ibarra MD / khadra Interpreting Provider: Leandra Ibarra MD Consult Discharge Plan - Plan Referrals: [facility] [Primary Care Provider] - <Reji De Souza T - Last Filed: 01/26/17 17:13> Date of Encounter: 01/26/17 - Constitutional Vitals: Temp Pulse Resp BP Pulse Ox 98.2 F 70 16 156/83 94 01/26/17 16:16 01/26/17 16:16 01/26/17 16:16 01/26/17 16:16 01/26/17 16:16 Internal Medicine: Result - Labs CBC & Chem 7: 01/26/17 03:48 01/26/17 03:48 - ABG Interpretation ABG results: PT/INR, D-dimer PT 17.2 Seconds (9.4-12.1) H 01/26/17 03:48 - Impressions Impressions Brain MRI 01/26/17 08:24 IMPRESSION: There is a sequela of encephalomalacia and gliosis in the left middle cerebral artery territory with wallerian degeneration. There are chronic small vessel ischemic changes in the periventricular white matter and central dolores. There are no areas of restricted diffusion to suggest an acute ischemic event. D/ : / 01/26/2017 09:47:25 Leandra Ibarra MD / khadra Interpreting Provider: Leandra Ibarra MD - Attending Attestation I examined this patient and my medical decision-making was reviewed with the Resident Physician on 01/26/17. I agree with the documented findings, disposition and treatment plan as described except to the extent set forth below. Mr. Wilson was seen and evaluated at bedside. 56 Y/O M with ESRD, recently started on HD, admitted following weakness and recurrent falls. Work up so far unremarkable, TSH is WNL, phenytoin level is sub -therapeutic, and Brain MRI revealed no acute infarct, evidence of encephalomalacia and gliosis. He appears confused and has a focal motor deficit on his right from is prior CVA. He is otherwise clinically stable. Labs and Imaging reviewed. Continue current care Likely discharge home with home health for PT/OT/Aide a.m Rest of details as in residents documentation
[2017-01-26] MEDS ORDERED: *HR* Warfarin 5 MG TABLET PO SCH (18:00)
[2017-01-27 06:05] LABS: INR 1.8; Prothrombin Time 20.1 Seconds (9.4-12.1)
[2017-01-27 06:06] LABS: Hemoglobin 10.2 g/dL (12.9-16.9); Mean Corpuscular Hemoglobin 31.8 pg (28.0-33.3); Mean Corpuscular Volume 93.5 fL (83.0-100.0); Mean Platelet Volume 10.8 fL (9.4-12.4); Platelet Count 142 K/mcL (140-400); Red Blood Count 3.21 M/mcL (4.19-5.50); Red Cell Distribution Width 13.9 % (11.5-14.5)
[2017-01-27 06:19] LABS: Calcium 8.2 mg/dL (8.6-10.8); Potassium 3.5 mEq/L (3.5-4.5)
[2017-01-27] MEDS: levETIRAcetam 250 MG TABLET PO SCH (08:45)
[2017-01-27] MEDS: Insulin NPH/REG 70/30 100 UNIT/ML (x5UNIT) SQ SCH ×2 (08:45→17:53)
[2017-01-27] MEDS: Insulin LISPRO 300 UNITS/3 ML VIAL SQ SCH ×3 (08:45→17:53)
[2017-01-27] MEDS: Ammonium Lactate 30 APPL/225 GM BOTTLE TP SCH (08:48)
--- NOTE | 2017-01-27 09:35 | Nephrology Progress Note ---
Date of Encounter: 01/27/17 Time of Encounter: 09:20 - Assessment and Plan (1) ESRD (end stage renal disease) on dialysis Current Visit: Yes Status: Acute ESRD. HD today, keeping MWF schedule. Orders given. Subjective Interval history: Watching tv, states shoulder pain under control, feeling somewhat stronger, no new complaints. Objective - Vital Signs Vital signs: Vital Signs Temp Pulse Resp BP Pulse Ox 01/27/17 08:02 97.9 F 77 18 129/78 93 01/27/17 04:31 97.5 F L 70 16 119/75 99 01/27/17 00:16 97.7 F 66 17 144/70 95 01/26/17 20:17 97.6 F 73 15 149/74 97 01/26/17 16:16 98.2 F 70 16 156/83 94 01/26/17 11:34 98.0 F 70 14 171/85 97 01/26/17 10:21 96 Intake and Output 01/26/17 01/27/17 01/27/17 23:59 07:59 15:59 Intake Total 220 / 220 200 / 200 Output Total 400 / 400 Balance 220 / 220 -200 / -200 Intake: Oral 220 / 220 200 / 200 Output: Urine 400 / 400 Other: Meal Dinner Breakfast Percent of Meal Consumed 50% 100% Weight 70.44 kg Blood Glucose* 178 149 Patient Weight 01/27/17 23:59 Weight 70.44 kg - General Appearance General appearance: Present: well-developed, well-nourished, appears started age EENT: Present: mucous membranes moist Neck: Present: no JVD Respiratory: Present: wheezing Cardiology: Present: edema, regular rate, regular rhythm Additional Comments: trace pitting LE Gastrointestinal: Present: normoactive bowel sounds, no tenderness Integumentary: Present: warm and dry Neurologic: Present: alert and oriented x3 Psychiatric: Present: mood/affect appropriate, cooperative - Lab 01/27/17 05:40 01/27/17 05:40 Most recent lab results Calcium 8.2 mg/dL (8.6-10.8) L 01/27/17 05:40 Phosphorus 2.4 mg/dL (2.3-4.7) 01/25/17 09:06 Magnesium 1.8 mg/dL (1.6-2.6) 01/24/17 17:15 Consult Discharge Plan - Plan [facility]errals: [facility] [Primary Care Provider] -
--- NOTE | 2017-01-27 10:28 | Discharge Summary ---
<Howard Schneider - Last Filed: 01/27/17 14:28> Date of Encounter: 01/27/17 Time of Encounter: 10:26 - Discharge Diagnosis (1) Weakness Priority: Primary Status: Acute (2) ESRD (end stage renal disease) on dialysis Priority: Primary Status: Chronic (3) Elevated troponin I level Priority: Primary Status: Acute (4) Closed right clavicular fracture Priority: Primary Status: Acute Qualifiers: Encounter type: initial encounter Clavicle location: lateral end Fracture alignment: nondisplaced Qualified Code(s): S42.034A - Nondisplaced fracture of lateral end of right clavicle, initial encounter for closed fracture (5) DVT prophylaxis Priority: Primary Status: Acute (6) Type 2 diabetes mellitus Priority: Primary Status: Chronic Qualifiers: Diabetes mellitus complication status: with kidney complications Diabetes mellitus complication detail: with chronic kidney disease 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 Chronic kidney disease stage: stage 4 (severe) Qualified Code(s): E11.22 - Type 2 diabetes mellitus with diabetic chronic kidney disease; N18.4 - Chronic kidney disease, stage 4 (severe); 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 - Discharge Medications Home Medications: Ammonium Lactate 1 appl TP BID 01/24/17 [History] Atorvastatin [Lipitor] 40 mg PO HS 01/24/17 [History] Calcitriol [Rocaltrol] 0.25 mcg PO DAILY 01/24/17 [History] Carvedilol [Coreg] 25 mg PO BID 01/24/17 [History] Clopidogrel [Plavix] 75 mg PO DAILY 01/24/17 [History] Dextrose [Glucose] 16 gm PO AD PRN 01/24/17 [History] Docusate Sodium [Dok] 100 mg PO DAILY 01/24/17 [History] Ergocalciferol (VITAMIN D2) [Vitamin D2] 50,000 unit PO QWEEK 01/24/17 [History] Gabapentin [Neurontin] 400 mg PO DAILY 01/24/17 [History] Glucagon,Human Recombinant [Glucagon Emergency Kit] 1 mg IJ ONCE PRN 01/24/17 [ History] Insulin NPH Hum/Reg Insulin Hm [Novolin 70-30 100 Unit/ml Vial] 5 unit SQ QPM [History] Insulin NPH Hum/Reg Insulin Hm [Novolin 70-30 100 Unit/ml Vial] 15 unit SQ QAM 01/24/17 [History] LevETIRAcetam [Keppra] 500 mg PO BID 01/24/17 [History] Lisinopril [Zestril] 20 mg PO DAILY 01/24/17 [History] Nut.tx.impaired Renal Fxn,Soy [Nepro Carb Steady] 237 ml PO DAILY 01/24/17 [ History] Omeprazole [PriLOSEC] 20 mg PO DAILY 01/24/17 [History] Phenytoin ER [Dilantin ER] 200 mg PO BID 01/24/17 [History] Triamcinolone Acet 0.1% CRM [Kenalog] 1 appl TP BID 01/24/17 [History] Warfarin [Coumadin] 5 mg PO SUTUTHSA 01/24/17 [History] Warfarin [Coumadin] 7.5 mg PO MOWEFR 01/24/17 [History] cloNIDine HCl [Clonidine HCl] 0.3 mg PO TID 01/24/17 [History] Allergies/Adverse Reactions: Allergies No Known Allergies Allergy (Verified 01/24/17 15:51) Date of admission: 01/26/17 06:12 [facility] Discharging clinician: Howard Schneider Anticipated date of discharge: 01/27/17 - Patient Status Disposition: Home Health Service Condition: Fair Functional capacity at discharge: independent ambulation Overall status at discharge: patient is back to baseline - Discharge Instructions [facility] Up With: [facility] Care Provider[facility] - 02/03/17 12:45 pm (Please follow up schedule..) - Diet and Activity Activity: as per physical therapy Diet: advance to your usual diet Hospital course: Mr. Wilson is a 56 year old male who presented to [facility] after experiencing weakness. He states that he has been weak and dizzy ever since starting dialysis 5 weeks ago. Present emergency room from the [place] urgent care for a complaint of generalized weakness and recurrent falls. Patient's brother reports that he has been getting progressively weaker since initiating his dialysis. He also complains of lightheadedness, poor appetite however he denies any symptoms of chest pain, palpitations, shortness of breath, nausea, vomiting, abdominal pain, diarrhea, fever, chills. He does report that his symptoms are exacerbated with changes in position. In the emergency department , patient was afebrile, hypertensive at 185/85, and was saturating at 100% on room air. Lab results were significant for H/H of 11.5/34.0, hypokalemia of 3.4 , a BUNs/creatinine of 21/3.82 with a GFR of 16, glucose of 147. Alkaline phosphatase of 182. Urinalysis revealed greater than 300 of protein, 100 glucose with no signs of infection. Troponin was also elevated at 0.04. Chest x-ray revealed no acute cardiopulmonary disease however an incidental finding of a distal right clavicular fracture was seen. Head CT revealed no acute intracranial abnormality and EKG emergency department was normal sinus rhythm at 69 bpm. Patient was admitted to medicine service with a diagnosis of weakness, elevated troponin, clavicular fracture, end-stage renal disease on dialysis. During course of admission, patient received an evaluation for his weakness, which included physical therapy and occupational therapy, brain MRI, orthostatic blood pressures, laboratory results. Patient reports that his weakness and dizziness resolved after the first day of admission. 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 Physical therapy and occupational therapy recommended home health upon discharge to [place]. Orthostatic blood pressures were positive and patient was provided with adequate education and fluid intake. Blood cultures taken in the emergency part more negative, TSH values were within normal limit. She will also receive dialysis during inpatient stay. Patient was given sling for right clavicular fracture. Elevated troponin levels were likely due to demand ischemia, as no noted changes on EKG with contributions from decreased renal function. Day of discharge, patient had no complaints and was medically stable for discharge. He was instructed to follow-up with his primary care physician upon discharge and to complete his physical and occupational therapy at the [place]. - Time Spent with Patient Total time spent providing and/or coordinating discharge services: Greater than 30 minutes - Constitutional Vitals: Temp Pulse Resp BP Pulse Ox 97.9 F 77 18 129/78 93 01/27/17 08:02 01/27/17 08:02 01/27/17 08:02 01/27/17 08:02 01/27/17 08:02 General appearance: Present: cachectic, cooperative, A&O X 3, pleasant, no acute distress Exam: Gen.: Vitals noted. No acute distress. AAOx3, speaking in full sentences, decreased eye contact HEENT: PERRL, oropharynx clear, Normocephalic, atraumatic, moist mucous membranes Neck: Supple. No adenopathy. Cardiac: RRR, no murmur, +S1/S2 Pulmonary: CTA bilaterally, no wheezes, rales or rhonchi, equal chest expansion Abdomen: soft, nontender, BS noted, no guarding Back: Nontender throughout. MSK: Right arm in sling secondary to right clavicular fracture, ROM intact, no joint swelling noted, decreased muscle strength on right side secondary to previous stroke Extremities: no BLE edema, nontender calf, no cyanosis or clubbing Neuro: A&Ox3, no focal deficits Psych: Appropriate mood and behavior <Reji De Souza - Last Filed: 01/27/17 15:02> Date of Encounter: 01/27/17 Date of admission: 01/26/17 06:12 [facility] care physician: [facility] Consults: 01/27/17 11:15 Consult to Dialysis [CONS] ONCE Hospital course: Mr. Wilson is a 56 year old male - Time Spent with Patient Total time spent providing and/or coordinating discharge services: - Constitutional Vitals: Temp Pulse Resp BP Pulse Ox 98.1 F 75 20 165/90 97 01/27/17 10:47 01/27/17 10:47 01/27/17 10:47 01/27/17 10:47 01/27/17 10:47 - Attending Attestation I examined this patient and my medical decision-making was reviewed with the Resident Physician on 01/27/17. I agree with the documented findings, disposition and treatment plan as described except to the extent set forth below. Mr. Wilson was seen and evaluated at bedside. 56 Y/O M with ESRD, recently started on HD, admitted following weakness and recurrent falls. Work up was unremarkable, TSH is WNL, phenytoin level is sub- therapeutic, and Brain MRI revealed no acute infarct, evidence of encephalomalacia and gliosis. He appears confused and has a focal motor deficit on his right from is prior CVA. He is otherwise clinically stable. Labs and Imaging reviewed, unremarkable. Stable for discharge with home health PT/OT [facility] Rest of details as in resident physicians documentation
--- NOTE | 2017-01-27 11:00 | Physician Discharge Referral ---
Home Health/Hosp Referral Info Transfer to: Home Health Provider in Charge Post Discharge: PCP - Diagnosis (1) Weakness Priority: Primary Status: Acute (2) ESRD (end stage renal disease) on dialysis Priority: Primary Status: Chronic (3) Elevated troponin I level Priority: Primary Status: Acute (4) Closed right clavicular fracture Priority: Primary Status: Acute (5) DVT prophylaxis Priority: Primary Status: Acute (6) Type 2 diabetes mellitus Priority: Primary Status: Chronic - Respiratory Orders Smoking Cessation: Smoking cessation has been advised. For more information, call the [place] Tobacco Quit Line at 9-882-OKGT-NOW. - Diet/Nutrition Diet/Nutrition Orders: Renal - Services Needed Following services are medically necessary services: Home Health Aide, Physical Therapy, Occupational Therapy - Transfer Medications Home Medications: Ammonium Lactate 1 appl TP BID 01/24/17 [History] Atorvastatin [Lipitor] 40 mg PO HS 01/24/17 [History] Calcitriol [Rocaltrol] 0.25 mcg PO DAILY 01/24/17 [History] Carvedilol [Coreg] 25 mg PO BID 01/24/17 [History] Clopidogrel [Plavix] 75 mg PO DAILY 01/24/17 [History] Dextrose [Glucose] 16 gm PO AD PRN 01/24/17 [History] Docusate Sodium [Dok] 100 mg PO DAILY 01/24/17 [History] Ergocalciferol (VITAMIN D2) [Vitamin D2] 50,000 unit PO QWEEK 01/24/17 [History] Gabapentin [Neurontin] 400 mg PO DAILY 01/24/17 [History] Glucagon,Human Recombinant [Glucagon Emergency Kit] 1 mg IJ ONCE PRN 01/24/17 [ History] Insulin NPH Hum/Reg Insulin Hm [Novolin 70-30 100 Unit/ml Vial] 5 unit SQ QPM [History] Insulin NPH Hum/Reg Insulin Hm [Novolin 70-30 100 Unit/ml Vial] 15 unit SQ QAM 01/24/17 [History] LevETIRAcetam [Keppra] 500 mg PO BID 01/24/17 [History] Lisinopril [Zestril] 20 mg PO DAILY 01/24/17 [History] Nut.tx.impaired Renal Fxn,Soy [Nepro Carb Steady] 237 ml PO DAILY 01/24/17 [ History] Omeprazole [PriLOSEC] 20 mg PO DAILY 01/24/17 [History] Phenytoin ER [Dilantin ER] 200 mg PO BID 01/24/17 [History] Triamcinolone Acet 0.1% CRM [Kenalog] 1 appl TP BID 01/24/17 [History] Warfarin [Coumadin] 5 mg PO SUTUTHSA 01/24/17 [History] Warfarin [Coumadin] 7.5 mg PO MOWEFR 01/24/17 [History] cloNIDine HCl [Clonidine HCl] 0.3 mg PO TID 01/24/17 [History] Allergies/Adverse Reactions: Allergies No Known Allergies Allergy (Verified 01/24/17 15:51) Certification: Further, I certify that my clinical findings support that this patient is homebound (i.e. absences from home require considerable and taxing effort and are for medical reasons or muslim services or infrequently or short duration when for other reasons) because: Homebound Reason: Leaving home requires considerable and taxing effort due to condition Attestation: My signature below is to certify that this patient is under my care and that I, or nurse practitioner, or a physician's acquisitions assistant working with me, has a face-to -face encounter with this patient.
[2017-01-27] MEDS ORDERED: *HR* Heparin 10,000 UNIT/10 ML VIAL IV PRN (11:06)
[2017-01-27] MEDS ORDERED: 0.9 % Sodium Chloride 250 ML IVC PRN (11:06)
[2017-01-27] MEDS ORDERED: 0.9 % Sodium Chloride 1,000 ML PRIME SCH (11:15)
[2017-01-27] MEDS: Lisinopril 20 MG TABLET PO SCH (15:29)
[2017-01-27] MEDS: cloNIDine HCl 0.1 MG TABLET PO SCH ×2 (15:29→17:52)
[2017-01-27] MEDS: Gabapentin 300 MG CAPSULE PO SCH (15:29)
[2017-01-27 17:36] VITALS: BP 169/92
[2017-01-27] MEDS: *HR* Warfarin 7.5 MG TABLET PO SCH (17:52)
[2017-01-28 16:42] LABS: Phenytoin (Dilantin) Free 1.5 ug/mL (1.0-2.5); Phenytoin Dose NOT PROVIDED; Phenytoin Dose Frequency NOT PROVIDED; Phenytoin Route NOT PROVIDED
[2017-01-30 09:55] LABS: Phenytoin Percent Free 18.3 % (8.0-14.0); Phenytoin Type of Draw NOT PROVIDED
== END 2017-01-27 18:20 | disposition home health service (06) | DRG 562 ==
LOC: 2ANU 15:45 → EMEROO 15:45 → 2ANU 19:18
PROVIDERS: ADMIT Internal Medicine; ATTEND Internal Medicine